=== PATIENT | female | born 1965 | race Asian ===

== ENCOUNTER → 2017-01-22 | Outpatient (REF) | payer OTHER | LOC: M SFHCLERA 11:52 | PROVIDERS: ATTEND Physician Assistant | DX: R30.0 Dysuria (principal); R31.9 Hematuria, unspecified ==

== ENCOUNTER → 2017-05-15 | Outpatient (REF) | payer OTHER ==
[2017-05-15 13:43] LABS: FERRITIN 131 NG/ML (8-252); PERCENT SATURATION 21.2 % (13.2-45.0); TOTAL IRON BINDING CAPACITY 325 UG/DL (250-450)
[2017-05-15 13:51] LABS: VITAMIN B12 LEVEL 624 PG/ML (247-911)
[2017-05-15 13:52] LABS: FOLATE 23.2 NG/ML (>5.4)
[2017-05-15 13:53] LABS: ERYTHROCYTE SEDIMENTATION RATE 28 mm/hr (0-30); REASON FOR REVIEW ANEMIA / RBC MORPH
[2017-05-17 14:14] LABS: HEMOGLOBIN A 91.9 % (94.0-98.0); HEMOGLOBIN F (FETAL) 1.4 % (0.0-2.0)
[2017-05-19 09:08] LABS: PNH FOR PATH SEND OUT See Separate Report
== END ==
LOC: M LAB REF 12:31
PROVIDERS: ATTEND Internal Medicine Medical Oncology
DX: D64.9 Anemia, unspecified (principal)

== ENCOUNTER → 2017-06-23 | Outpatient (CLI) | payer OTHER ==
--- NOTE | 2017-06-23 18:56 | REP ---
MRI brain without contrast: History: Headaches. Comparison brain CT study October 25, 2010. Technique: Axial and sagittal imaging planes are utilized for T1 and T2-weighted scans. Sequences include spin-echo, fast spin echo, FLAIR, and diffusion weighted sequences. MRI findings: No bony abnormality is seen. Craniocervical junction and upper cervical cord are normal in appearance. There is no MR evidence of significant paranasal sinus disease. No intraorbital or deep facial soft tissue abnormality is seen. No vascular abnormality is observed. Lateral third and fourth ventricles are normal in size and position. T2-weighted turbo spin-echo and FLAIR images demonstrate multiple foci of T2 hyperintensity in the subcortical white matter of the frontal and parietal lobes bilaterally. These are nonspecific and may relate to small vessel atherosclerotic changes, demyelinating disease, or gliosis related to migraine headaches and microvascular change. No T1 one of these has is associated T1 hypo intensity in the left posterior frontal lobe. Diffusion weighted scan show no evidence of restricted diffusion to suggest acute ischemia. No extra-axial fluid collection is seen. No cortical infarction, mass or midline shift is seen. Impression: Nonspecific subcortical white matter T2 hyperintensities bilaterally. Otherwise negative. No acute intracranial lesion. Signed by Shun Gutierrez MD 06/23/2017 07:19 P
== END ==
LOC: M RAD 16:47
PROVIDERS: ATTEND Family Medicine
DX: R51 Headache (principal)

== ENCOUNTER → 2017-11-13 | Outpatient (REF) | payer OTHER | LOC: M LAB REF 12:57 | DX: D59.9 Acquired hemolytic anemia, unspecified (principal) | CPT/HCPCS: 88300 ==

== ENCOUNTER → 2018-03-06 | Outpatient (REF) | payer OTHER | LOC: M LAB REF 18:25 | DX: Z12.4 Encounter for screening for malignant neoplasm of cervix (principal) | CPT/HCPCS: G0123 ==

== ENCOUNTER → 2018-03-13 | Outpatient (CLI) | payer OTHER | LOC: M WHC 16:25 | DX: Z12.31 Encounter for screening mammogram for malignant neoplasm of breast (principal); Z78.0 Asymptomatic menopausal state | CPT/HCPCS: 77067 ==

== ENCOUNTER → 2018-03-21 | Outpatient (REF) | payer OTHER | LOC: M SFHCLERA 16:45 | DX: R30.0 Dysuria (principal) ==

== ENCOUNTER 2018-08-17 07:57 | Day surgery (SDC) | payer OTHER ==
[~2018-08-17] VITALS: Ht 157.5 cm; Wt 60.8 kg
[~2018-08-17 07:57] MED LIST: ATOR40TA75 PO; CALC500T36 PO; MULT1TAB10 PO
[2018-08-17] MEDS ORDERED: NS 1,000 ML IV ONE (08:45)
[2018-08-17] MEDS ORDERED: PROPOFOL 200 MG/20 ML VIAL As Ordered ONE (09:19)
[2018-08-17] MEDS ORDERED: LIDOCAINE 2% INJ 100 MG/5 ML SDV (FOR ANES.) As Ordered ONE (09:19)
--- NOTE | 2018-08-17 09:36 | ROOR ---
Patient Name: Iliana Lundberg Procedure Date: 08/17/2018 9:17 AM Date of : 1965 Age: 53 Room: [facility] Gender: Female Note Status: Finalized Procedure: Colonoscopy Indications: Screening for colorectal malignant neoplasm Providers: Lyndon RIOJAS MD Referring MD: CAROLINA OLIVER MD Requesting Provider: Medicines: Monitored Anesthesia Care Complications: No immediate complications. Procedure: Pre-Anesthesia Assessment: - The heart rate, respiratory rate, oxygen saturations, blood pressure, adequacy of pulmonary ventilation, and response to care were monitored throughout the procedure. The Colonoscope was introduced through the anus and advanced to the terminal ileum, with identification of the appendiceal orifice and IC valve. The colonoscopy was performed without difficulty. The patient tolerated the procedure well. The quality of the bowel preparation was good. Findings: The perianal and digital rectal examinations were normal. (Exam: Complete, Prep: Good or Excellent.) A diminutive polyp was found in the sigmoid colon. The polyp was sessile. The polyp was removed with a cold snare. Resection and retrieval were complete. Internal hemorrhoids were found during retroflexion. The hemorrhoids were medium-sized. Retroflexion in the right colon was performed. The exam was otherwise normal throughout the examined colon. Impression: - One diminutive polyp in the sigmoid colon, removed with a cold snare. Resected and retrieved. - Small/moderate Internal hemorrhoids. - The colon is otherwise normal. Recommendation: - Await pathology results. - If the pathology report reveals adenomatous tissue, then repeat the colonoscopy for adenoma surveillance in 5 years. - If the pathology report indicates hyperplastic polyp, then repeat colonoscopy for screening purposes in 10 years. - Telephone endoscopist for pathology results in 2 weeks. Lyndon Riojas MD Lyndon RIOJAS MD 08/17/2018 9:36:12 AM This report has been signed electronically. Number of Addenda: 0 Note Initiated On: 08/17/2018 9:17 AM Estimated Blood Loss: Estimated blood loss: none.
[2018-08-17 09:50] VITALS: BP 125/94
== END 2018-08-17 10:06 | disposition home or self-care (01) ==
LOC: M OPP 07:57
PROVIDERS: ATTEND Internal Medicine Gastroenterology
DX: Z12.11 Encounter for screening for malignant neoplasm of colon (principal); K63.5 Polyp of colon; K64.8 Other hemorrhoids; E78.5 Hyperlipidemia, unspecified; D64.9 Anemia, unspecified; Z79.899 Other long term (current) drug therapy

== ENCOUNTER → 2019-04-23 | Outpatient (CLI) | payer OTHER ==
[~2019-04-23] MED LIST changes: -CALC500T36 PO; +CALC500T61 PO; +MULTCAP PO; +OYST1TAB PO; +VITA500045 PO
--- NOTE | 2019-04-23 16:42 | REPMRS ---
Patient History The patient states she had a clinical breast exam in 03/2019. No known family history of cancer. No [facility]ormone Replacement Therapy [facility] for [facility] 10.8%. Digital Woman Screen Mammo: April 23, 2019 - Exam #: [id number] Bilateral CC and MLO view(s) were taken. Technologist: Sophia Jain Technologist Prior study comparison: March 13, 2018, bilateral digital woman screen mammo performed at [facility]. August 19, 2016, digital woman screen mammo performed at [facility]. FINDINGS: The breast tissue is heterogeneously dense. This may lower the sensitivity of mammography. There has been no change in the appearance of the mammogram from the prior studies. There is a moderate amount of residual fibroglandular tissue which is fairly symmetric. There is no interval development of dominant mass, areas of architectural distortion, or clustered microcalcification typical of malignancy. Assessment: BI-RADS/ACR category 1 mammogram. Negative Mammogram. Recommendation Routine screening mammogram in 1 year (for women over age 40). This mammogram was interpreted with the aid of an FDA-approved computer-aided dectection system. Electronically Signed By: Zackary Rice MD 04/23/19 [id number]
== END ==
LOC: M WHC 14:00
PROVIDERS: ATTEND Nurse Practitioner Women's Health
DX: Z12.31 Encounter for screening mammogram for malignant neoplasm of breast (principal)
CPT/HCPCS: 77067; G0463

== ENCOUNTER → 2019-09-13 | Outpatient (REF) | payer OTHER | LOC: M SFHCPLAZ 08:17 | PROVIDERS: ATTEND Dermatology | DX: D22.5 Melanocytic nevi of trunk (principal) ==

== ENCOUNTER → 2020-01-29 | Outpatient (CLI) | payer OTHER ==
[2020-01-29 18:04] LABS: EOS # 0.1 10^3/uL (0.0-0.5); EOS % 1.4 % (0.0-3.0); HEMATOCRIT 37.9 % (36.0-47.0); HEMOGLOBIN 11.4 g/dl (12.0-15.5); LYMPH # 1.6 10^3/uL (1.5-5.0); MEAN CORPUSCULAR HEMOGLOBIN 20.9 pg (27.0-33.0); MEAN CORPUSCULAR HGB CONC 30.1 g/dl (32.0-36.5); MEAN CORPUSCULAR VOLUME 69.5 fl (80.0-96.0); MONO # 0.4 10^3/uL (0.0-0.8); MONO % 9.2 % (0.0-5.0); NEUTROPHILS % 48.9 % (36.0-66.0); PLATELET COUNT, AUTOMATED 230 10^3/uL (150-450); RED BLOOD COUNT 5.45 10^6/uL (4.00-5.40); WHITE BLOOD COUNT 4.2 10^3/uL (4.0-10.0)
[2020-01-29 18:33] LABS: ALBUMIN 3.9 GM/DL (3.2-5.2); ALT/SGPT 70 U/L (12-78); BILIRUBIN,TOTAL 0.5 MG/DL (0.2-1.0); BLOOD UREA NITROGEN 13 MG/DL (7-18); CALCIUM LEVEL 9.2 MG/DL (8.5-10.1); CARBON DIOXIDE LEVEL 30 MEQ/L (21-32); CHLORIDE LEVEL 106 MEQ/L (98-107); GLOMERULAR FILTRATION RATE > 60.0 (>51); GLUCOSE, FASTING 93 MG/DL (70-100); LDH LACTATE DEHYDROGENASE 208 U/L (84-246); POTASSIUM SERUM 4.2 MEQ/L (3.5-5.1); SODIUM LEVEL 142 MEQ/L (136-145); TOTAL PROTEIN 7.7 GM/DL (6.4-8.2)
[2020-01-31 08:08] LABS: HAPTOGLOBIN 182 mg/dL (33-346)
== END ==
LOC: M LAB 16:54
PROVIDERS: ATTEND Internal Medicine Medical Oncology
DX: D64.9 Anemia, unspecified (principal)

== ENCOUNTER → 2022-07-04 | Outpatient (REF) | payer OTHER ==
[~2022-07-04] MED LIST changes: +ATOR1TAB21 PO; +ERGO500029 PO; +MULT-90 PO; +PROBCAP14 PO
== END ==
LOC: M SFHCWAGY 17:14
PROVIDERS: ATTEND Nurse Practitioner Family
DX: Z12.4 Encounter for screening for malignant neoplasm of cervix (principal)

== ENCOUNTER 2023-09-29 10:17 | Day surgery (SDC) | payer OTHER ==
[~2023-09-29] VITALS: Ht 157.5 cm; Wt 61.7 kg
[~2023-09-29 10:17] MED LIST changes: +NS 1,000 ML IV ONE
[2023-09-29] MEDS ORDERED: LIDOCAINE 2% 100MG/5ML SDV (FOR ANES.) As Ordered ONE (10:29)
[2023-09-29] MEDS ORDERED: propofoL 500 MG/50 ML VIAL As Ordered ONE (10:30)
[2023-09-29] MEDS ORDERED: fentaNYL 100 MCG/2 ML INJECTION As Ordered ONE (10:30)
[2023-09-29 12:28] VITALS: TEMP 97.7
[2023-09-29 12:52] VITALS: BP 127/80; O2SAT 100
== END 2023-09-29 12:53 | disposition home or self-care (01) ==
LOC: M OPP 10:17
PROVIDERS: ATTEND Internal Medicine Gastroenterology
DX: Z12.11 Encounter for screening for malignant neoplasm of colon (principal); Z86.010 Personal history of colon polyps; K64.8 Other hemorrhoids; K57.30 Diverticulosis of large intestine without perforation or abscess without bleeding; K57.32 Diverticulitis of large intestine without perforation or abscess without bleeding; K31.89 Other diseases of stomach and duodenum; R93.3 Abnormal findings on diagnostic imaging of other parts of digestive tract; Z79.02 Long term (current) use of antithrombotics/antiplatelets
CPT/HCPCS: 43239; 45378; 88305; J3010

== ENCOUNTER → 2024-11-08 | Outpatient (CLI) | payer OTHER ==
[~2024-11-08] MED LIST changes: -NS 1,000 ML IV ONE
== END ==
LOC: M WHC 09:32
PROVIDERS: ATTEND Family Medicine
DX: Z12.31 Encounter for screening mammogram for malignant neoplasm of breast (principal); R92.333 Mammographic heterogeneous density, bilateral breasts

== ENCOUNTER → 2025-07-08 | Outpatient (REF) | payer OTHER ==
[2025-07-10 14:23] LABS: HPV APTIMA Not Detected (Not Detected)
== END ==
LOC: M PLALAB 15:25
PROVIDERS: ATTEND Physician Assistant
DX: Z12.4 Encounter for screening for malignant neoplasm of cervix (principal)
CPT/HCPCS: 87624; G0123